=== PATIENT | female | born 1940 | race Caucasian/White ===

== ENCOUNTER → 2021-02-23 11:19 | Outpatient (CLI) | payer MEDICARE, SELFPAY ==
[2021-02-23 14:12] LABS: COVID19 -Nasal RAPID Negative (Negative)
== END ==
PROVIDERS: Visit Provider Student in an Organized Health Care Education/Training Program
DX: Z20.822 Contact with and (suspected) exposure to COVID-19 (principal); Z01.812 Encounter for preprocedural laboratory examination
CPT/HCPCS: 87635; C9803

== ENCOUNTER 2021-02-25 09:09 | Day surgery (SDC) | payer MEDICARE, SELFPAY ==
--- NOTE | 2021-02-24 19:01 | PM.PREOP ---
Pre-operative Note COVID-19 COVID-19 status: Negative Interval Note History & Physical reviewed/Exam performed by Physician: Yes Changes to H&P: No
--- NOTE | 2021-02-25 08:00 | P.OP_ITS ---
Operative Date/Time/Diagnoses Date of procedure: 02/25/21 Time of procedure: 10:45 Procedure & Clinicians Procedure: Preoperative diagnoses: 1. Complex right advanced cortical and nuclear sclerotic cataract with need for capsular dye to improve safety. 2. Astigmatism which is to be corrected with a toric intraocular lens implant. 3. Scoliosis 4. Previous breast cancer. 5. Hypertension with reduced medication due to side effects. Postoperative diagnoses: 1. Complex Cataract removal with phacoemulsification with toric posterior chamber intraocular lens implant placed. Capsular dye used. Procedure: Phacoemulsification with posterior chamber toric intraocular lens implant. Surgeon: Alla Hale MD Complications: None Specimen: None Implant: [id number]+19.5 [place] 180 Blood loss: None Anesthesia: Retrobulbar with monitored standby Description of procedure: Patient presents with a complaint of decreased vision due to cataract which is affecting activities of daily living especially for dry. The patient wants surgery to improve vision and astigmatism. She chooses a distance target. She understands the extra risk of surgery during the COVID-19 epidemic and wishes to proceed. She has been vaccinated. She has tested negative for active COVID 19 virus within 72 hours of the procedure. The patient was taken to the operating room and proparacaine drops placed. Indelible ink daily were placed at the 90 and 180 degree meridian. The patient was placed on the operating room table and given IV sedation. A retrobulbar block insert consisting of 6 cc of 2% xylocaine without epinephrine mixed half and half with 0.5% Marcaine with 1 cc of hyaluronidase added is placed between the medial and lateral 1/3 of the inferior orbital rim. The eye is manually massaged for 30 sec, prepped using Betadine solution, and draped in the usual sterile fashion. Temporal approach was made, a 1 mm side-port incision was made 90? from the proposed corneal wound. Phenylephrine 1.5% mixed with 1% xylocaine 0.2 cc was placed into the anterior chamber. Due to poor red reflex and cortical spokes through the central visual axis and air bubble was was placed followed by Visudyne capsular dye. The air was then irrigated out of the anterior chamber. Viscoat followed by Healon was then placed. A 2.6 mm clear incision with a 2.6 mm blade was placed at the 170 degree meridian. A 360 degree capsulorrhexis style capsulotomy was then performed with a [facility] by the capsular dye. Hydrodelineation and hydrodissection were performed. The phacoemulsification unit is introduced, and sculpting used to groove the central lens. It is then removed in chopping mode. Epi nucleus is removed with epinuclear mode and irrigation aspiration was used to remove the peripheral cortex. The posterior capsule is polished. The intraocular lens is selected, inspected, power confirmed, and placed in the posterior chamber at the desired meridian of 180?. The pupil was not constricted. The wound was stromally hydrated and tested for leaks, there was none and it was left sutureless. Vigamox 0.1 cc was placed into the anterior chamber. Kenalog 0.2 cc was placed in the superior subconjunctival space. A drop of antibiotic and was placed and the eye was patched and shielded. The patient was stable and returned to the recovery room in excellent condition. Her blood pressure was controlled during the surgery with hydralazine and she is adjusting her usual blood pressure medication postoperatively. She has been on reduced dose due to side effects of vertigo and memory fogginess. Dictated by: Alla Hale MD Copy to: [facility] Same procedure as scheduled: Yes
[2021-02-25] MEDS: PROPARACAINE 0.5% OPHTH SOL 2 DROPS EYE-OP (10:08)
[2021-02-25] MEDS: CATARACT EYE COMPOUND (10 DROPS/SYRINGE) 3 DROPS EYE-OP (10:09)
[2021-02-25 10:15] VITALS: BP 192/89; PULSE 70; RESP 12; TEMP 37.1; O2SAT 99; BMI 21.5
[2021-02-25 10:32] VITALS: BP 178/93; PULSE 66
--- NOTE | 2021-02-25 11:21 | SUR.OPER ---
Supine on eye stretcher, head on extension cradle secured with tape. Arms tucked at sides with blanket. Pillow under knees.
[2021-02-25] MEDS: BALANCED SALT IRRIG SOLN NO.2 500 ML, EPINEPHrine 1 MG IRR (11:22)
[2021-02-25] MEDS: LIDOCAINE 2% 4 ML, BUPIVACAINE 0.5% (PF) 4 ML, HYALURONIDASE 150 UNIT INJ (11:22)
[2021-02-25] MEDS: TRYPAN BLUE 0.5 ML SYRINGE INJ (11:22)
[2021-02-25] MEDS: TRIAMCINOLONE 50 MG/5 ML VIAL INJ (11:24)
[2021-02-25] MEDS: HYALURONATE SODIUM 10 MG/ML SYRINGE INJ (11:24)
[2021-02-25] MEDS: ERYTHROMYCIN OPHTH 1 GM OINT 1 APPLIC EYE-RIGHT (11:25)
[2021-02-25] MEDS: CHONDROIDTIN/SOD HYALURONATE 1.05 ML SYRINGE INTRAOCULA (11:25)
[2021-02-25] MEDS: MOXIFLOXACIN INJ 4 MG/0.8 ML VIAL 0.5 MG EYE-OP (11:25)
[2021-02-25] MEDS: PHENYLEPHRINE/LIDOCAINE VIAL (OR) 0.2 ML EYE-OP (11:26)
[2021-02-25 11:50] VITALS: BP 145/70; PULSE 85; RESP 16; TEMP 36.6; O2SAT 97
== END 2021-02-25 12:07 | disposition home or self-care (01) ==
LOC: OR 09:15
PROVIDERS: PCP Family Medicine; Referring Provider Ophthalmology; Visit Provider Ophthalmology
PROC: (CPT 66984; principal; 2021-02-25 10:45)
DX: H25.811 Combined forms of age-related cataract, right eye (principal); H52.201 Unspecified astigmatism, right eye; I10 Essential (primary) hypertension
CPT/HCPCS: 66984; J0171; J0360; J2704; J3301; J3470; V2787

== ENCOUNTER 2021-03-11 12:10 | Day surgery (SDC) | payer MEDICARE, SELFPAY ==
--- NOTE | 2021-03-10 17:57 | PM.PREOP ---
Pre-operative Note COVID-19 COVID-19 status: Negative Interval Note History & Physical reviewed/Exam performed by Physician: Yes Changes to H&P: No
--- NOTE | 2021-03-11 08:31 | P.OP_ITS ---
Operative Date/Time/Diagnoses Date of procedure: 03/11/21 Time of procedure: 13:15 Procedure & Clinicians Procedure: Preoperative diagnoses: 1. Left cortical and nuclear sclerotic cataract 2. Astigmatism which is to be corrected with a toric intraocular lens implant. 3. History of breast surgery. 4. History of poorly controlled hypertension with medicines being altered to improve control. 5. Pterygium Postoperative diagnoses: 1. Cataract removal with phacoemulsification with toric posterior chamber intraocular lens implant placed. Procedure: Phacoemulsification with posterior chamber toric intraocular lens implant. Surgeon: Alla Hale MD Complications: None Specimen: None Implant: [id number] [place] 180 Blood loss: None Anesthesia: Retrobulbar with monitored standby Description of procedure: Patient presents with a complaint of decreased vision due to cataract which is affecting activities of daily living distance and near. The patient wants surgery to improve vision and astigmatism. She states that she has had successful cataract surgery in her right eye 2 weeks ago and wants a similar target in this. She has tested COVID-19 negative within 72 hours prior to the procedure and wishes to proceed. She has been under medical care for her hypertension which is improving with new medication. The patient was taken to the operating room and proparacaine drops placed. Indelible ink daily were placed at the 90 and 180 degree meridian. The patient was placed on the operating room table and given IV sedation. A retrobulbar block insert consisting of 6 cc of 2% xylocaine without epinephrine mixed half and half with 0.5% Marcaine with 1 cc of hyaluronidase added is placed between the medial and lateral 1/3 of the inferior orbital rim. The eye is manually massaged for 30 sec, prepped using Betadine solution, and draped in the usual sterile fashion. Temporal approach was made, a 1 mm side-port incision was made 90? from the proposed corneal wound. Phenylephrine 1.5% mixed with 1% xylocaine 0.2 cc was placed into the anterior chamber. Viscoat followed by Josselyn was then placed. A 2.6 mm clear incision with a 2.6 mm blade was placed at the 170 degree meridian. A 360 degree capsulorrhexis style capsulotomy was then performed with a cystitome needle on a Healon. Hydrodelineation and hydrodissection were performed. The phacoemulsification unit is introduced, and sculpting used to groove the central lens. It is then removed in chopping mode. Epi nucleus is removed with epinuclear mode and irrigation aspiration was used to remove the peripheral cortex. The posterior capsule is polished. The intraocular lens is selected, inspected, power confirmed, and placed in the posterior chamber at the desired meridian of 180?. The pupil was not constricted. The wound was stromally hydrated and tested for leaks, there was none and it was left sutureless. Vigamox 0.1 cc was placed into the anterior chamber. Kenalog 0.2 cc was placed in the superior subconjunctival space. A drop of antibiotic and was placed and the eye was patched and shielded. The patient was stable and returned to the recovery room in excellent condition. Dictated by: Alla Hale MD Copy to: [facility] Same procedure as scheduled: Yes
[2021-03-11] MEDS: PROPARACAINE 0.5% OPHTH SOL 2 DROPS EYE-OP (12:30)
[2021-03-11 12:31] VITALS: BP 190/94; PULSE 76; RESP 12; TEMP 36.9; O2SAT 100; BMI 21.5
[2021-03-11] MEDS: CATARACT EYE COMPOUND (10 DROPS/SYRINGE) 3 DROPS EYE-OP (12:35)
[2021-03-11] MEDS: HYALURONATE SODIUM 10 MG/ML SYRINGE INJ (14:09)
[2021-03-11] MEDS: CHONDROIDTIN/SOD HYALURONATE 1.05 ML SYRINGE INTRAOCULA (14:09)
[2021-03-11] MEDS: MOXIFLOXACIN INJ 4 MG/0.8 ML VIAL 0.5 MG EYE-OP (14:09)
[2021-03-11] MEDS: TRIAMCINOLONE 50 MG/5 ML VIAL INJ (14:10)
[2021-03-11] MEDS: PHENYLEPHRINE/LIDOCAINE VIAL (OR) 0.2 ML EYE-OP (14:10)
[2021-03-11] MEDS: LIDOCAINE 2% 4 ML, BUPIVACAINE 0.5% (PF) 4 ML, HYALURONIDASE 150 UNIT INJ (14:11)
[2021-03-11] MEDS: BALANCED SALT IRRIG SOLN NO.2 500 ML, EPINEPHrine 1 MG IRR (14:11)
[2021-03-11] MEDS: ERYTHROMYCIN OPHTH 1 GM OINT 1 APPLIC EYE-LEFT (14:13)
[2021-03-11 14:33] VITALS: BP 174/83; PULSE 64; RESP 14; TEMP 36.7; O2SAT 100
== END 2021-03-11 14:40 | disposition home or self-care (01) ==
PROVIDERS: PCP Family Medicine; Referring Provider Ophthalmology; Visit Provider Ophthalmology
PROC: (CPT 66984; principal; 2021-03-11 13:15)
DX: H25.812 Combined forms of age-related cataract, left eye (principal); H52.202 Unspecified astigmatism, left eye; I10 Essential (primary) hypertension; H11.009 Unspecified pterygium of unspecified eye
CPT/HCPCS: 66984; J0171; J2704; J3010; J3301; J3470; V2787

== ENCOUNTER → 2022-03-22 14:39 | Outpatient (CLI) | payer MEDICARE, SELFPAY ==
--- NOTE | 2022-03-22 | DI.ECHO.S_ITS ---
[place]---------+ [facility] +---------+ : : [address] : : : : [id number] : : : : Phone: [phone]+ Echocardiogram Report + + :Name: FRANKLIN HURD Study Date: 03/22/2022 Height: 62 in : :[facility] ReadingLocation: Weight: 108 lb : : Gender: Female BSA: 1.5 m2 : :: 1940 Age: 81 yrs BP: 167/83 mmHg: :Reason For Study: CARDIAC MURMUR : :Ordering Physician: CHELSEA, : :REANNA Performed By: Lamar Mixon : :Referring: REANNA PEREZ : + + Interpretation Summary 1) Normal left ventricular thickness, size, wall motion, and systolic function (EF 60-65%). 2) Normal right ventricular size and function. 3) No significant valvular abnormalities. 4) No prior Echo available for comparison. Procedure: A two-dimensional transthoracic echocardiogram with color flow and Doppler was performed. The study quality was technically adequate. There is no prior echocardiogram noted for this patient. The patient was in sinus rhythm with heart rates between 65-75 bpm during the exam. Left Ventricle: The left ventricle is normal in size and wall thickness. The ejection fraction is estimated to be 60-65%. Left ventricular systolic function appears normal without focal wall motion abnormalities. Diastolic parameters suggest a relaxation abnormality of the left ventricle, consistent with probable normal filling pressures. Right Ventricle: The right ventricle is normal in size and function. Atria: The left atrial size is normal. Right atrial size is normal. There is no Doppler evidence for an interatrial shunt. Mitral Valve: The mitral valve is normal in structure and function. There is mild mitral annular calcification. There is mild mitral regurgitation. Aortic Valve: The aortic valve is trileaflet. The aortic valve opens well. There is no aortic valve stenosis. There is trace aortic regurgitation. Tricuspid Valve: The tricuspid valve is normal in structure and function. There is mild tricuspid regurgitation. The right ventricular systolic pressure is estimated to be at least 32 mmHg based on an estimated right atrial pressure of 3 mm Hg. Pulmonic Valve: The pulmonic valve is not well seen, but is grossly normal. There is trace pulmonic regurgitation. Great Vessels: The aortic root is normal size. The dimensions of the ascending aorta are normal. The IVC is of normal diameter and collapses greater than 50% with a sniff. This suggests a low right atrial pressure of 3 mm Hg. Pericardium/ Pleura There is no pericardial effusion. There is no pleural effusion. MMode/2D Measurements & Calculations LVIDd: 3.6 cm LVOT diam: 2.0 cm LVIDs: 2.3 cm Ao root diam: 2.8 cm FS: 34.3 % asc Aorta Diam: 2.8 cm IVSd: 0.78 cm Ao Arch Diam (Prox Trans): 2.6 cm LVPWd: 0.94 cm LV bhatt. diameter/BSA (cm/m^2): 2.4 LV sys. diameter/BSA (cm/m^2): 1.6 LA A2 area: 15.8 cm2 RA long axis: 4.7 cm LA A4 area: 16.8 cm2 RA area: 16.3 cm2 LA length (vol): 4.9 cm RA vol: 47.7 ml LA vol: 46.3 ml RA : 32.4 ml/m2 LA vol index: 31.5 ml/m2 IVC diam: 1.8 cm RVD1 (basal): 3.1 cm RVD2 (mid): 2.5 cm TAPSE: 2.5 cm Doppler Measurements & Calculations Ao V2 max: 155.4 cm/sec LVOT Max Dinesh: 149.5 cm/sec Ao V2 mean: 113.4 cm/sec LV V1 max P.9 mmHg Ao max P.7 mmHg LV V1 VTI: 31.0 cm Ao mean P.6 mmHg JAROD(I,D): 2.9 cm2 Ao V2 VTI: 31.9 cm JAROD(V,D): 2.9 cm2 sev ratio: 0.97 JAROD indexed to BSA (cm^2/m^2): 2.0 MV E max dinesh: 91.5 cm/sec TR max dinesh: 270.9 cm/sec MV A max dinesh: 81.2 cm/sec TR max P.3 mmHg MV E/A: 1.1 PA V2 max: 93.8 cm/sec Med Peak E' Dinesh: 10.3 cm/sec PA V2 mean: 70.4 cm/sec E/E' med: 8.9 PA mean P.1 mmHg Lat Peak E' Dinesh: 11.0 cm/sec PA pr(Accel): 32.8 mmHg E/E' lat: 8.3 E/e' average: 8.6 MV dec time: 0.23 sec MVA(VTI): 3.1 cm2 MV V2 mean: 63.1 cm/sec SV(LVOT): 93.7 ml MV mean P.9 mmHg MV V2 VTI: 30.5 cm Reading Physician:04:23 PM
== END ==
PROVIDERS: PCP Family Medicine; Referring Provider Internal Medicine Cardiovascular Disease; Visit Provider Internal Medicine Cardiovascular Disease
DX: R01.1 Cardiac murmur, unspecified (principal); I08.1 Rheumatic disorders of both mitral and tricuspid valves
CPT/HCPCS: 93306

== ENCOUNTER 2023-10-01 20:07 | Emergency (ER) | payer MEDICARE, SELFPAY ==
[2023-10-01 20:14] VITALS: BP 168/75; PULSE 93; RESP 16; TEMP 37.3; O2SAT 98; BMI 20.7
--- NOTE | 2023-10-01 20:19 | DI.RAD.S_ITS ---
PROCEDURE: XR SHOULDER LT MIN 2V INDICATIONS: fall/pain TECHNIQUE: 3 views of the shoulder were acquired. COMPARISON: None. FINDINGS: Bones: Acute slightly comminuted fracture involving surgical neck of left proximal humerus is seen with superior and medial displacement of proximal humeral shaft in relation to humeral head. No suspicious bony lesions. Visualized ribs appear intact. Soft tissues: No suspicious soft tissue calcifications. IMPRESSION: Acute slightly comminuted and displaced fracture through left proximal humeral shaft/surgical neck as above. Dictated by: Dagoberto Flores M.D. on 10/01/2023 at 20:50 Approved by: Dagoberto Flores M.D. on 10/01/2023 at 20:52
--- NOTE | 2023-10-01 21:09 | PC.NURSE ---
pt ambulatory to recliner in hallway in nad with ice pack in place to R shoulder. nad noted.
--- NOTE | 2023-10-01 21:54 | ED.UPPEXIN ---
HPI - Extremity Injury (Upper) General Chief Complaint: Extremity Injury, Upper Stated Complaint: Left shoulder injury Time Seen by Provider: 10/01/23 20:26 Source: patient Mode of arrival: Ambulatory History of Present Illness HPI narrative: 82-year-old female who presents with left shoulder pain and swelling after reportedly ?pivoting while walking and fell onto her left upper extremity. Pain is described as a dull, throbbing ache that is worse with range of motion and palpation. Patient reports in a usual state of health prior to incident. No other complaints injuries associated symptoms noted. Patient arrives via private vehicle. Patient is awake, alert in no apparent distress and maintaining her own airway. Related Data Home Medications Medication Instructions Recorded Confirmed cholecalciferol (vitamin D3) 50 2,000 iu PO QDAY ##0 08/11/11 03/11/21 mcg (2,000 unit) capsule (Vitamin D3) [ROBOSE] 1 cap PO QDAY ##0 05/20/17 03/11/21 lysine 500 mg tablet 500 mg PO QDAY ##0 05/20/17 03/11/21 magnesium 200 mg tablet 200 mg PO QDAY ##0 05/20/17 03/11/21 multivitamin (Multiple Vitamins 1 tab PO QDAY ##0 05/20/17 03/11/21 tablet) vitamin B complex (B 1 tab PO QDAY ##0 05/20/17 03/11/21 Complex-Vitamin B12 tablet) losartan 25 mg tablet 25 mg PO DAILY 03/11/21 03/11/21 Previous Rx's Medication Instructions Recorded levothyroxine 75 mcg tablet 0.075 mg PO QAM #90 tabs 12/23/16 (Synthroid) oxycodone-acetaminophen 5 mg-325 1 tab PO Q4-6H PRN pain #20 tabs 10/01/23 mg tablet (Percocet) Allergies Allergy/AdvReac Type Severity Reaction Status Date / Time Sulfa (Sulfonamide Allergy Mild Verified 03/11/21 12:26 Antibiotics) OCEAN SPRAY Allergy Mild RUNNY Uncoded 03/11/21 12:26 NOSE, WATERY EYES Review of Systems Review of Systems Narrative: See HPI for pertinent positives, otherwise review of systems negative Patient History Surgical History Status post tubal ligation Status post dilation and curettage Family History Father Prostate cancer Hypertension Grandmother Heart disease Hypertension Mother Hypertension Stroke Social History household members: spouse Smoking Status: Never smoker alcohol intake: current Smoking Status: Never smoker alcohol intake frequency: 0-2 drinks per day Substance Use Type: does not use Exam Narrative Exam Narrative: General:? Awake, alert, lying comfortably in bed during both exam and interview and in no apparent distress HEENT:? Normocephalic, atraumatic, pupils equal and reactive to light, neck is supple, normal range of motion Chest:? Normal to inspection, no crepitus, no tenderness Cardiovascular:? 2+ radial bilaterally, regular rhythm/rate. Pulmonary:? Regular respirations, no respiratory distress, lungs clear to auscultation bilateral Abdomen:? Soft, nontender, nondistended, no guarding or rebound tenderness, no hernia Back: ?No midline spinal tenderness, normal range of motion, no step-off deformities :? Exam deferred Skin:? Warm, dry, intact, no rashes Extremities:? Left proximal upper extremity swelling and pain with range of motion limited due to pain. Neuro:? No focal neurological deficits, , normal gait, normal speech Psych:? Normal mood, normal affect normal attention Initial Vital Signs Initial Vital Signs: Vital Signs Temperature 99.2 F 10/01/23 20:14 Pulse Rate 93 H 10/01/23 20:14 Respiratory Rate 16 10/01/23 20:14 Blood Pressure 168/75 H 10/01/23 20:14 Pulse Oximetry 98 10/01/23 20:14 Oxygen Delivery Method Room Air 10/01/23 20:14 Course Orders Ordered: Discontinued Medications Oxycodone/Acetaminophen (Oxycodone/Acetaminophen 5/325 Tablet) 1 tab PO NOW ONE Stop: 10/01/23 21:54 Last Admin: 10/01/23 21:59 Dose: Not Given Documented By: TARIK Oxycodone/Acetaminophen (Oxycodone/Apap 5/325 Prepack) 1 bottle MISC DIRECTED ONE Stop: 10/01/23 21:54 Last Admin: 10/01/23 22:12 Dose: 1 bottle Documented By: KF Vital Signs Vital signs: Vital Signs - 8 hr 10/01/23 20:14 Temperature 99.2 F Pulse Rate 93 H Respiratory Rate 16 Blood Pressure 168/75 H Pulse Oximetry 98 Oxygen Delivery Method Room Air MDM - Extremity Injury (Upper) MDM Narrative Medical decision making narrative: Patient presents with left shoulder pain and imaging suggestive proximal humeral fracture. Pain control given along with arm sling. Discussed case with orthopedics patient scheduled to have surgery. Discharge Plan Departure Patient Disposition: Home Clinical Impression: Fracture, humerus closed Instructions: Humeral Shaft Fracture Prescriptions: New oxycodone-acetaminophen [Percocet] 5-325 mg tablet 1 tab PO Q4-6H PRN (Reason: pain) Qty: 20 0RF Continued cholecalciferol (vitamin D3) [Vitamin D3] 2,000 UNIT capsule 2,000 iu PO QDAY Qty: 0 levothyroxine [Synthroid] 75 MCG tablet 0.075 mg PO QAM Qty: 90 1RF magnesium 200 MG tablet 200 mg PO QDAY Qty: 0 multivitamin [Multiple Vitamins] 1 EACH tablet 1 tab PO QDAY Qty: 0 vitamin B complex [B Complex-Vitamin B12] 1 EACH tablet 1 tab PO QDAY Qty: 0 lysine 500 MG tablet 500 mg PO QDAY Qty: 0 [ROBOSE] 1 cap PO QDAY Qty: 0 losartan 25 mg tablet 25 mg PO DAILY Referrals: Cesar Stockton MD [Physician] - As soon as possible Markie Leblanc MD [Primary Care Provider] - As soon as possible Stand Alone Forms: Patient Portal/API
[2023-10-01] MEDS: OXYCODONE/APAP 5/325 PREPACK 1 BOTTLE MISC (22:12)
== END 2023-10-01 22:22 | disposition home or self-care (01) ==
PROVIDERS: Emergency Provider Emergency Medicine; PCP Family Medicine
DX: S42.302A Unspecified fracture of shaft of humerus, left arm, initial encounter for closed fracture (principal); W18.30XA Fall on same level, unspecified, initial encounter
CPT/HCPCS: 73030; 99281; 99283

== ENCOUNTER → 2023-10-31 12:04 | Outpatient (CLI) | payer MEDICARE, SELFPAY ==
--- NOTE | 2023-10-31 | DI.RAD.S_ITS ---
PROCEDURE: XR LUMBAR SPINE 2-3V INDICATIONS: Other displaced fracture of upper end of left humerus TECHNIQUE: 3 views of the lumbar spine were acquired. COMPARISON: None. FINDINGS: Bones: 5 non rib-bearing lumbar vertebral bodies. Extensive degenerative change. Scoliotic curvature. Question mild chronic compressions of the left side of L1 and L2. Diffuse osteopenia. Soft tissues: Overlying bowel gas pattern is normal. No suspicious soft tissue calcifications. IMPRESSION: Extensive degenerative change, scoliotic curvature, severe osteopenia, presumed chronic compressions. Comment: If suspect pain from an acute compression fracture, consider lumbar spine MRI. Dictated by: Hola Cline M.D. on 10/31/2023 at 17:55 Approved by: Hola Cline M.D. on 10/31/2023 at 17:57
--- NOTE | 2023-10-31 | DI.CT.S_ITS ---
PROCEDURE: CT UE LT WO CON INDICATIONS: Other displaced fracture of upper end of left taryn TECHNIQUE: Noncontrast 1-1.5 mm thick sections acquired from the acromioclavicular joint to the inferior scapula, with coronal and sagittal reformatting. COMPARISON: None. FINDINGS: Image quality: Excellent. Bones: Comminuted fracture involving surgical neck/proximal humeral shaft is seen with superior and anterior migration of humeral shaft in relation to humeral head. Fracture lines are seen extending to greater and lesser tuberosities with anterior, lateral and posterior medial displacement of fractured fragments. No dislocation. Moderate acromioclavicular joint and glenohumeral joint osteoarthritic changes are seen. No suspicious bony lesions. The visualized left upper to mid ribs are intact. Soft tissues: There is significant soft tissue swelling and edema surrounding proximal humeral shaft fracture site. Moderate joint effusion and subacromial subdeltoid bursal fluid is seen, no gross intra-articular loose bodies. No gross full-thickness rotator cuff tendon rupture. Mild supraspinatus muscle atrophy is seen on sagittal images. No axillary lymphadenopathy is seen. The visualized left upper to mid lung field is clear. IMPRESSION: 1. Acute comminuted and displaced left proximal humeral fracture as described above consistent with NEER classification 4 part fracture. 2. [id number] acromioclavicular joint and glenohumeral joint osteoarthritis. Moderate joint effusion which may represent hemarthrosis. No calcified intra-articular loose bodies. 3. No gross full-thickness rotator cuff tendon rupture. Mild supraspinatus muscle atrophy. No abnormal soft tissue calcifications. Dictated by: Dagoberto Flores M.D. on 10/31/2023 at 16:10 Approved by: Dagoberto Flores M.D. on 10/31/2023 at 16:13
[2023-10-31 12:52] LABS: Add Manual Diff / Slide Review NO; Basophils Absolute Auto 0 /uL (0-100); Basophils Percent Auto 0.7 % (0-2); Eosinophils Absolute Auto 0 /uL (0-450); Eosinophils Percent Auto 0.6 % (2-4); Hemoglobin 12.9 g/dL (12.0-16.0); Lymphocytes Absolute Auto 800 /uL (1100-4500); Lymphocytes Percent Auto 11.1 % (25-40); Mean Corpuscular Hemoglobin 32.2 PG (26-34); Mean Corpuscular Volume 91.9 fL (80-100); Monocytes Absolute Auto 500 /uL (0-900); Monocytes Percent Auto 7.8 % (3-14); Neutrophils Absolute Auto 5600 /uL (1500-7000); Neutrophils Percent Auto 79.8 % (50-75); Platelet Count 370 X10^3/uL (150-400); Red Blood Cell Count 4.02 X10^6/uL (4.0-5.2); Red Cell Distribution Width 13.2 % (11.6-14.8)
[2023-10-31 13:23] LABS: BUN Creatinine Ratio 23.1 (6-22); Blood Urea Nitrogen 12 mg/dL (7-17); Calcium 9.5 mg/dL (8.4-10.2); Carbon Dioxide 27 mmol/L (22-32); Chloride 88 mmol/L (98-107); Estimated Glomerular Filt Rate > 60 mL/min (>60); Glucose 114 mg/dL (80-110); HEMOLYSIS < 15 (0-50); Potassium 4.3 mmol/L (3.4-5.1); Sodium 124 mmol/L (137-145)
[2023-10-31 13:47] LABS: Appearance Urine UA CLEAR; Bilirubin Urine UA NEGATIVE (NEGATIVE); Color Urine UA YELLOW; Glucose Urine UA NEGATIVE (Negative); Ketones Urine UA TRACE (NEGATIVE); Leukocyte Esterase Urine UA NEGATIVE (NEGATIVE); Nitrite Urine UA NEGATIVE (Negative); Occult Blood Urine UA NEGATIVE (Negative); Protein Urine UA TRACE (Negative); Specific Gravity Urine UA 1.015 (1.000-1.035); Urobilinogen Urine UA 0.2 E.U./dL (0.2)
[2023-10-31 13:52] LABS: Urine Volume 10mL (spun); pH Urine UA 5.5 (4.5-8.0)
[2023-10-31 13:53] LABS: Bacteria Urine None Seen; Culture Indicated Urine Cult Not Indicated; RBC Urine None Seen (0-5/HPF); Squamous Epithelial Cell Urine None Seen (0-5/HPF); WBC Urine None Seen (0-5/HPF)
== END ==
PROVIDERS: Orthopaedic Surgery; PCP Family Medicine; Referring Provider Physician Assistant; Visit Provider Physician Assistant
DX: Z01.818 Encounter for other preprocedural examination (principal); Z01.812 Encounter for preprocedural laboratory examination; S42.292A Other displaced fracture of upper end of left humerus, initial encounter for closed fracture; N39.0 Urinary tract infection, site not specified; M43.16 Spondylolisthesis, lumbar region; M19.012 Primary osteoarthritis, left shoulder
CPT/HCPCS: 36415; 72114; 73200; 80048; 81001; 85025; 93005; 93010

== ENCOUNTER 2023-12-08 12:02 | Day surgery (SDC) | payer MEDICARE, SELFPAY ==
[2023-12-01 12:46] VITALS: BMI 20.4
[2023-12-08] VITALS (8 sets, daily range): BP systolic 105–160; BP diastolic 50–80; PULSE 61–93; RESP 15–19; TEMP 36.2–36.6; O2SAT 92–100; BMI 20.4
--- NOTE | 2023-12-08 | DI.RAD.S_ITS ---
PROCEDURE: XR SHOULDER LT 1V INDICATIONS: total left shoulder TECHNIQUE: 1 views of the shoulder were acquired. COMPARISON: [facility], , XR SHOULDER LT MIN 2V, 10/01/2023, 20:31. FINDINGS: Bones: Well-aligned, intact left shoulder arthroplasty without hardware complication. Soft tissues: Subcutaneous edema and gas, as expected. IMPRESSION: Well-aligned, intact left shoulder arthroplasty without hardware complication. Dictated by: Wolf Nash M.D. on 12/08/2023 at 18:27 Approved by: Wolf Nash M.D. on 12/08/2023 at 18:28
[2023-12-08] MEDS: LACTATED RINGERS 1,000 ML 42 ML IV ×3 (13:37→16:33)
[2023-12-08] MEDS: ACETAMINOPHEN 325 MG TABLET 975 MG PO ×2 (13:37→13:50)
[2023-12-08 14:02] LABS: Blood Urea Nitrogen 11 mg/dL (7-17); Calcium 9.9 mg/dL (8.4-10.2); Carbon Dioxide 28 mmol/L (22-32); Chloride 96 mmol/L (98-107); Estimated Glomerular Filt Rate > 60 mL/min (>60); Glucose 101 mg/dL (80-110); HEMOLYSIS < 15 (0-50); Potassium 4.1 mmol/L (3.4-5.1); Sodium 129 mmol/L (137-145)
--- NOTE | 2023-12-08 14:34 | P.HP_ITS ---
History of Present Illness History of Present Illness Date Patient Seen: 12/08/23 Time Patient Seen: 14:35 Chief complaint: Left Total Shoulder Arthroplasty - Reverse Narrative: Patient is here today in preoperative holding area for a left reverse total shoulder arthroplasty for a complex proximal humerus fracture. Here with her daughter today. Denies any recent nausea, vomiting, diarrhea, fevers, chills or any other constitutional symptoms. No other complaints at time. [facility] Medical History (Updated 12/01/23 @ 13:39 by Harriet Stewart RN) Cardiac murmur Sinus drainage Pneumonia (~2018) Anxiety and depression Arthritis Fracture of neck of left humerus Scoliosis Hypothyroidism History of chest pain (~2020) HLD (hyperlipidemia) HTN (hypertension) Surgical History (Updated 12/01/23 @ 13:17 by Harriet Stewart RN) History of orthopedic surgery Hx of bilateral cataract extraction Status post tubal ligation Status post dilation and curettage Family History Father Prostate cancer Hypertension Grandmother Heart disease Hypertension Mother Hypertension Stroke Social History household members: spouse Smoking Status: Never smoker alcohol intake: current Meds Home Medications and Allergies Home Medications Medication Instructions Recorded Confirmed Type cholecalciferol (vitamin D3) 50 5,000 iu PO QDAY ##0 08/11/11 12/08/23 History mcg (2,000 unit) capsule (Vitamin D3) levothyroxine 75 mcg tablet 0.075 mg PO QAM #90 tabs 12/23/16 12/08/23 Rx (Synthroid) multivitamin (Multiple Vitamins 1 tab PO QDAY ##0 05/20/17 12/08/23 History tablet) vitamin B complex (B 1 tab PO QDAY ##0 05/20/17 12/08/23 History Complex-Vitamin B12 tablet) amlodipine 10 mg tablet 10 mg PO BEDTIME 12/01/23 12/08/23 History losartan 100 mg tablet 100 mg PO BEDTIME 12/01/23 12/08/23 History rosuvastatin 5 mg tablet 5 mg PO BEDTIME 12/01/23 12/08/23 History Allergies Allergy/AdvReac Type Severity Reaction Status Date / Time Sulfa (Sulfonamide Allergy Mild Unkown - Verified 12/08/23 13:21 Antibiotics) childhood OCEAN SPRAY Allergy Mild RUNNY Uncoded 03/11/21 12:26 NOSE, WATERY EYES Review of Systems Review of Systems ROS: Yes All systems reviewed with the patient and are negative except as otherwise documented Exam Vital Signs (past 8 hours): - 12/08/23 13:42 Temperature 97.8 F Pulse Rate 76 Respiratory Rate 16 Blood Pressure 160/80 H Pulse Oximetry 100 Oxygen Delivery Method Room Air Oxygen Delivery Method Room Air Narrative Exam Narrative: HEENT: Head atraumatic eyes anicteric moist mucous membranes Cardiovascular: Palpable peripheral pulses extremities are warm and well perfused Respiratory: Breathing comfortably on room air Psychiatric: Appropriate mood and affect Neuro: No acute deficits Musculoskeletal: Did not range left upper extremity due to known injury. Able to make thumbs up, cross fingers, make A-OK sign. Sensation intact to light touch median, radial, ulnar, axillary nerve distributions. Objective Labs 12/08/23 Unknown Labs: Laboratory Results - last 24 hr 12/08/23 Unknown Sodium 129 L Potassium 4.1 Chloride 96 L Carbon Dioxide 28 BUN 11 Creatinine 0.44 L Estimated GFR > 60 BUN/Creatinine Ratio 25.0 H Glucose 101 Calcium 9.9 Assessment & Plan Assessment & Plan narrative: Assessment: 83-year-old female with left proximal humerus fracture Plan: We had previously discussed indications for treating proximal humerus fracture with nonoperative versus ORIF versus shoulder replacement. Given the poor bone quality, fracture morphology and significant displacement, I believe that the most appropriate solution for her is a reverse total shoulder arthroplasty. Risks and benefits of surgery were discussed again including the risk of infection, damage to internal structures, bleeding, nerve injury, instability, need for revision surgery, blood clots, anesthesia and . No guarantees were made regarding outcomes. Patient expressed understanding and accepted these risks and wished to go forward with surgery and consent was signed.
[2023-12-08] MEDS: CEFAZOLIN 2 GM/100 ML PREMIX 100 ML IV (14:53)
[2023-12-08] MEDS: TRANEXAMIC ACID 1,000 MG in SODIUM CHLORIDE 0.9% 100 ML 200 MG IV (14:53)
[2023-12-08] MEDS: EPINEPHRINE 0.15 MG INJ (15:42)
[2023-12-08] MEDS: BUPIVACAINE 0.25% INJ (15:42)
[2023-12-08] MEDS: BUPIVACAINE LIPOSOME 266 MG/20 ML VIAL INJ (15:43)
--- NOTE | 2023-12-08 15:45 | SUR.OPER ---
Beach chair with PALOMA shoulder positioner. Lower body on padded OR bed. Head in foam padded head cradle, secured with straps. Non-operative arm secured <90 degrees abduction. Pillow under knees. Safety belt at thigh. Cloth tape over blanket over lower legs.
[2023-12-08] MEDS: OXYCODONE IR 5 MG TABLET PO (18:07)
--- NOTE | 2023-12-08 18:19 | P.OP_ITS ---
Operative Date/Time/Diagnoses Date of procedure: 12/08/23 Time of procedure: 18:19 Pre-op diagnosis: Left proximal humerus fracture Post-op diagnosis: same Procedure & Clinicians Procedure: Left shoulder reverse for fracture Same procedure as scheduled: Yes Indications: Indications: This is a 83-year-old female who has left proximal humerus fracture. After extensive discussion in clinic, they wished to go forward with surgery. Risks and benefits were described including the risk of infection, bleeding, damage to internal structures including nerves as well as instability. We also discussed the risk of failure of surgery and the need for revision surgery as well as the risk of anesthesia. The patient expressed understanding with these risks and wished to go forward with surgery. Surgeon: Harlan Mcknight Conservation Agent: Lena Sethi Anesthesia Type: General Operative Notes Findings: Findings: Comminuted fracture of the proximal humerus including the humeral head Closure Type: primary Specimen(s): none sent Prosthetic devices, grafts, tissues, transplants, or devices: Tornier implants Base plate: standard 25 mm Glenosphere: 33 Stem: Fracture stem size 8 S Poly: +6 concentric Estimated Blood Loss (mL): 50 Procedure in detail: Patient was seen in the preoperative holding unit. The correct left shoulder was identified and marked with my initials. Again we discussed the risks and benefits of surgery and they wished to go forward with surgery. The patient was brought back to the operating room and placed supine on the operating table. Smooth endotracheal intubation was performed by anesthesia. All prominences were padded and they were placed into the beach chair position. Intravenous antibiotics were given. The left shoulder was then prepped with the standard sterile preparation and draping. A time-out was then performed in my initials were again identified on the correct shoulder. 1 g of IV tranexamic acid was given. A standard deltopectoral incision was made. Skin flaps were made. The cephalic vein was identified and retracted laterally. This was protected throughout the remainder of the case. Sharp dissection was made along the deltoid, subacromial and subcoracoid space to release adhesions. The conjoined tendon was identified and the axillary nerve was palpated and continuous using the tug test. It was protected throughout the remainder of the case. A brown retractor was placed underneath the deltoid muscle and a darach retractor underneath the conjoint tendon. The anterior circumflex artery and associated veins on the lower border of the subscapularis were identified and tied off using 0-Vicryl. The biceps tendon was identified in the bicipital groove. This was released from its sheath, and taken from its origin on the glenoid and tied into the pectoralis tendon for a solid tenodesis. We then began a subscapularis peel. The subscapularis was tagged with an Ethibond suture. A 360 degree circumferential release of the subscapularis was performed with protection of the axillary nerve. The coracohumeral ligament was released at the base of the coracoid. The coracoacromial ligament was left intact. The shoulder was then dislocated. Humeral head was removed and Osteophytes were removed using combination of rongeur and osteotome. The rotator cuff was noted to be intact. Impaction reamers were reamed up to a size 8 S stem. A neck protector was placed. Attention was then turned to the glenoid. After retracting the humeral head posteriorly a circumferential release was performed of the capsule with protection of the axillary nerve. The labrum was then released starting at the biceps anchor and going around the rim a small amount of triceps was released from the inferior glenoid. A center guide pin was then placed using the guide, followed by Reamer. After adequate cartilage was removed the center drill hole was drilled and measured. The base plate was then implanted and screwed into place. The superior drill and inferior hole was drilled and filled in a nonlocking fashion with good compression. A 33 glenosphere was then selected and screwed into place onto the base plate. Turning back to the humerus, the humeral head was delivered and trialed with a +6 concentric. The arm was taken through range of motion and this was felt to be stable. The trial was then removed and a dilute Betadine wash was then performed with 1 L of sterile saline. Before placing the final implant, drill holes were made in the bicipital groove for the subscapularis repair, and sutures were passed through the drill holes. Medium viscosity cement was placed on the smooth part of the stem. The final stem was then impacted into the humerus. The shoulder was then reduced and again brought through range of motion and was felt to be stable. The interval was then closed using #2 Ethibond. The subscapularis was then repaired using a modified racking hitch with nice loupes. The deltopectoral interval was then closed with #2 Ethibond. The skin was closed with 2-0 Vicryl and monae followed by Aquacel dressing. Patient was awoken from anesthesia and brought back to the postoperative recovery unit without issue. They were placed into a sling. Assisting participation: This operation could not have been safely performed (without compromising the technical results or length of the procedure) without the assistance of a skilled salesperson surgical appliances. The salesperson surgical appliances was medically necessary for proper positioning, retraction and manipulation of instruments, proper exposure, graft prep, and manipulation of tissue. Complications: none Post-operative Condition: stable Disposition: PACU Plan for aftercare: Postoperative instructions: Sling to remain on for 6 weeks. No external rotation past neutral for 6 weeks. Okay for the sling to come off for shower. Okay to shower over the Aquacel dressing. If any water gets underneath the dressing, remove the dressing. First postoperative visit in 2 weeks.
--- NOTE | 2023-12-08 18:31 | PC.NURSE ---
Patient arrived to room 220 this evening at 1830. She is A&OX4, slightly groggy and drowsy. She has LUE in shoulder sling, reports numbness Tingling and weakness to left hand and fingers.
[2023-12-08] MEDS: HYDROMORPHONE 0.5 MG INJ IV (18:58)
[2023-12-08] MEDS: ONDANSETRON 4 MG/2 ML INJ IV (19:34)
[2023-12-08] MEDS: SENNOSIDES 8.6 MG TABLET 17.2 MG PO (21:24)
[2023-12-08] MEDS: ASPIRIN EC 81 MG TABLET PO (21:24)
[2023-12-08] MEDS: DOCUSATE 100 MG CAPSULE PO (21:24)
--- NOTE | 2023-12-08 22:10 | PC.NURSE ---
Patient took home medications while family present. Medications are Losartan, Rosuvastin, and amlodipine. Notified on-call, Dr. Hu, also asked for order for Levothyroxine 75mcg. Patient education given on home medications per protocol, medications sent to pharmacy.
[2023-12-08] MEDS: CEFAZOLIN VIAL 1 GM in SODIUM CHLORIDE 0.9% 100 ML IV (22:57)
[2023-12-09] VITALS: BP 122/67; PULSE 72; RESP 18; TEMP 36.2; O2SAT 96
[2023-12-09] MEDS: ONDANSETRON 4 MG ODT PO ×2 (00:30→06:23)
[2023-12-09] MEDS: IBUPROFEN 600 MG TABLET PO ×2 (00:43→06:10)
[2023-12-09] MEDS: ACETAMINOPHEN 325 MG TABLET 650 MG PO ×3 (00:43→14:48)
[2023-12-09 06:00] VITALS: BP 119/63; PULSE 69; RESP 16; TEMP 36.8; O2SAT 96
[2023-12-09] MEDS: CEFAZOLIN VIAL 1 GM in SODIUM CHLORIDE 0.9% 100 ML IV (06:10)
[2023-12-09] MEDS: LEVOTHYROXINE 75 MCG TABLET PO (06:10)
[2023-12-09 06:50] LABS: Hematocrit 31.3 % (36-46); Mean Corpuscular Hemoglobin 32.1 PG (26-34); Mean Corpuscular Volume 91.5 fL (80-100); Platelet Count 201 X10^3/uL (150-400); Red Blood Cell Count 3.43 X10^6/uL (4.0-5.2); Red Cell Distribution Width 12.4 % (11.6-14.8); White Blood Cell Count 6.8 X10^3/uL (4.5-11.0)
[2023-12-09 08:19] VITALS: BP 121/58; PULSE 73
[2023-12-09] MEDS: ASPIRIN EC 81 MG TABLET PO (08:55)
[2023-12-09] MEDS: DOCUSATE 100 MG CAPSULE PO (08:55)
--- NOTE | 2023-12-09 09:37 | PT.IIE ---
Current Diagnoses Unspecified displaced fracture of surgical neck of left humerus, initial encounter for closed fracture (12/08/23) Surgery Performed Operation Date: 12/08/23 13:45 Actual Procedures p Total Shoulder Arthroplasty - Reverse with biceps tenodesis(Left) - Harlan Mcknight MD Surgical History (Last Updated 12/01/23 @ 13:17 by Harriet Stewart, RN) History of orthopedic surgery Hx of bilateral cataract extraction Status post dilation and curettage Status post tubal ligation Medical History (Last Updated 12/01/23 @ 13:39 by Harriet Stewart RN) Anxiety and depression Arthritis Cardiac murmur Fracture of neck of left humerus History of chest pain (~2020) HLD (hyperlipidemia) HTN (hypertension) Hypothyroidism Pneumonia (~2018) Scoliosis Sinus drainage Physical Therapy Inpatient Evaluation/Re-Eval M1 PT/OT-IP Prior Functional Status Start: 12/09/23 08:06 Freq: NEEDED Status: Active Protocol: Document 12/09/23 09:37 DLM (Rec: 12/09/23 11:53 DL [id number]) Medical Review Prior Functional Status Medical History Reviewed Yes Diet/Fluid Consistency Regular Communication WNL Mobility and Gait Independent without device, uses walking stick/sticks when taking walks on uneven surfaces Activities of Daily Living and IADL's Independent before humeral fx in Sep. Her and Daughter have been helping her since her injury. Prior Functional Level (Other details) She has an outhouse at home so using Commode instead since injury in September Social History Household Members spouse Living Arrangements House Number of Floors (Floors) Two Floors Number of Stairs To Enter/Railing? one step, her studio and clothing are on upper level otherwise she can stay first floor Home Environment Standard Height Toilet,Tub/ Shower Home Equipment Bedside Commode,Tub Transfer Bench Additional Social History Comment She makes things in her studio , sewing, crafts, art M2 PT-IP Current Condition Start: 12/09/23 08:06 Freq: NEEDED Status: Active Protocol: Document 12/09/23 09:37 DLM (Rec: 12/09/23 11:53 DLM [id number]) Physical Therapy Current Condition Current Condition Evaluation Date 12/09/23 Treatment Diagnosis left total shoulder Onset Date 12/08/23 M3 PT-IP Subjective Start: 12/09/23 08:06 Freq: NEEDED Status: Active Protocol: Document 12/09/23 09:37 DLM (Rec: 12/09/23 11:53 DL [id number]) Subjective Physical Therapy Visit Type Type Initial Evaluation Visit Start Time 08:50 Visit Stop Time 09:37 Number of ELECTRIC RELAY TESTER Visits 0 Physical Therapy Visit Comments Patient Comments She is having difficulty with nausea and gagging after taking medications. She has not been able to eat much. Patient Goals Discharge home Therapy Pain Assessment Pain When Pain Assessed At Rest Pain Present Pain Present Pain Reported Location Left Shoulder Intensity 4 Scale Used Numeric (0 - 10) Description Aching,Tender Pain Behaviors Guarding Pain Management Techniques Apply Cold,Re-positioning M4 PT-IP Mobility and Gait Start: 12/09/23 08:06 Freq: NEEDED Status: Active Protocol: Document 12/09/23 09:37 DLM (Rec: 12/09/23 11:53 [facility] [id number]) PT-Bed Mobility Assessment Supine to Sit Supine to Sit Independent Sit to Supine Sit to Supine Independent Scooting Scooting to Edge of Bed Independent PT-Transfer Assessment Sit to and From Stand Sit to and from Stand Independent Equipment Transfer Assistive Device None Transfers Transfer Destination Chair Transfer Technique Stand Step Pivot Transfer Ability Level of Assist Contact Guard Assistance, Minimal Assistance Comments Mobility Comments Pt requesting hand held assist due to her head feeling funny . Pt up to recliner this visit and left up with call light close. She had intermittent severe bouts of nausea during this visit but no vomiting. Her nurse is aware. Gait Assessment Gait Gait Assistance Required: Contact Guard Assist,Minimum Assistance Distance (Feet) 30 Assistive Devices Assistive Device None Gait Deviations General Gait Pattern Within Normal Limits Factors Limiting Gait Function Factors Limiting Gait Function Decreased Activity Tolerance Comments Gait Comments she demonstrates functional LE strength for safe gait, distances limited by nausea this visit PT-Balance Assessment Sitting Balance and Reactions Static Sitting Balance Ability Normal Dynamic Sitting Balance Ability Normal Standing Balance and Reactions Static Standing Balance Ability Good Dynamic Standing Balance Ability Fair Comments Other Balance Tests/Deviations/Treatment pt reports her head feels : foggy this morning which she believes is related to medications M5 PT-IP Objective Assessments Start: 12/09/23 08:06 Freq: NEEDED Status: Active Protocol: Document 12/09/23 09:37 DLM (Rec: 12/09/23 11:53 DL [id number]) Orientation Orientation/Cognition Level of Alertness Alert Orientation Name,Age,Birthday,Month,Date, Year,Day of Week,Place, Situation Language Function Ability No Deficits Noted Safety Awareness Understands Safety Issues Memory Description No Deficits Noted Gross Range of Motion Upper Extremity ROM Assessment Left Impaired Impairments post-op shoulder restrictions, no use left shoulder, elbow can extend with mild pain, moving wrist and hand actively Strength Upper Extremity Strength Assessment Left Impaired Shoulder no use Hand moving actively Lower Extremity Strength Assessment Within Functional Limits Coordination Assessment Gross Coordination Gross Coordination WNL Sensation Assessment Sensation Gross Sensation Left UE Impaired Comments Sensation Comments tingling in left hand since surgery Muscle Tone Muscle Tone WNL Yes M6 PT-IP Treatment Start: 12/09/23 08:06 Freq: NEEDED Status: Active Protocol: Document 12/09/23 09:37 DLM (Rec: 12/09/23 11:53 DLM [id number]) Physical Therapy Treatment Exercises Exercises Ankle Pumps,Shoulder Pendulums ,Elbow Flexion/Extension,Wrist ROM,Hand ROM Education Education Provided Precautions,Weight Bearing Status,Safety Other Treatments Other Treatment Performed pendulum done in sitting with just a hang away from body as tolerated, standing was demonstrated but not performed due to her nausea and foggy head M7 PT-IP Assessment and Plan Start: 12/09/23 08:06 Freq: NEEDED Status: Active Protocol: Document 12/09/23 09:37 DLM (Rec: 12/09/23 11:53 DLM [id number]) PT Summary Assessment and Plan Potential Rehabilitation Potential Good Status of Condition at Evaluation Evolving Summary Impairments Pain,ROM,Strength,Balance, Activity Tolerance Progress Towards Goals Safe For Discharge Assessment Summary Viri is alert and resting in bed. She is having post-op issues with nausea. She demonstrates good understanding of her post-op precautions for her left shoulder s/p total shoulder. She is wearing sling left UE which was repositioned this visit for fit/comfort. She demonstrates good functional strength for gait but she is requesting hand held assist when up today due to mild foggy feeling in her head. She has supportive family who can help her at discharge. She appears safe to discharge home when medically stable. Frequency of Treatment Frequency Of Treatment Discharge Treatment Plan Other Recommendations and Next Treatment training completed this visit Focus Precautions Shoulder Precautions Sling,Internal Rotation to Body,No External Rotation Weight Bearing Status Weight Bearing Status Non-Weight Bearing Allowed Weight Bearing Amount (enter % left UE, wear sling 6 weeks or #) (%) Recommendations To Nursing Amount of Assist Needed 1 Person Assist Discharge Recommendations PT Discharge Recommendations Home with Assistance Other Discharge Recommendations Her Spouse and Daughter will be able to assist her. She will stay in [facility] and [place] Transportation Needs at Discharge Private Vehicle
--- NOTE | 2023-12-09 10:38 | CM.DANOTE ---
Initial DCP Assessment Note Pt is a 83 yo female, resident of [place], now POD#1 from left shoulder arthroplasty by Dr Mcknight PCP: Gabbi Urban Payer: MARISOL Reviewed chart, pt discussed in multidisciplinary rounds this morning. Therapy has cleared pt for return home w/family to assist and pt has planned for home, DC order from Ortho has already been initiated this morning. Patient fractured her shoulder in September and family has been assisting w/ADLs since that time; plan to continue same level of assist post operatively. No barriers identified at this time to patient's safe discharge home w/family to assist; close outpatient f/u recommended. CM team will plan to follow closely in case any DC needs or concerns arise. QUE Menendez Discharge Planning/Care Management Discharge Assessment Start: 12/09/23 10:31 Freq: Status: Active Protocol: Document 12/09/23 10:31 ELOISA (Rec: 12/09/23 10:38 ELOISA [id number]) Discharge Planning Assessment Assigned Sap Portal Architect QUE Sampson DPOA/Assigned Designee Name Markie Bush, spouse Contact Information [phone] Advance Directives? Yes Advance Directives on File No History Provided By Patient,Medical Record Prior Living Arrangements House Household Members spouse Type of transporation used prior to Drives own vehicle admit Independent with ADL's Yes: Patient fractured her shoulder months ago, family has been helping Is patient alert and oriented? Yes Needs Assistance With Meal Prep,Home Chores / Shopping Patient/Family Preference OP PT Therapy Barriers to Discharge No Comment Home w/family expected Discharge Plan Home Transportation Arrangement Family Referrals Initiated None needed
--- NOTE | 2023-12-09 11:18 | P.DS_ITS ---
History of Present Illness History of Present Illness Chief complaint: Left Total Shoulder Arthroplasty - Reverse Narrative: Viri is a pleasant 83-year-old female who is pod #1 s/p left reverse total shoulder for a left proximal humerus fracture. She reports overall she is doing well. Pain has been mild and well controlled with Tylenol and Ibuprofen alone today. She lives at home with her who is willing and able to aid patient in her immediate postop recovery. She feels that he can take care of her if she were to d/c to home today but has concerns about ferry times and getting onto a ferry today. Has post-op PT appts set up with [facility] already. Denies fever, chills, chest pain, shortness of breath, or vomiting. Does endorse nausea which she has been getting Zofran for. Operative Date/Time/Diagnoses Date of procedure: 12/08/23 Time of procedure: 18:19 Pre-op diagnosis: Left proximal humerus fracture Post-op diagnosis: same Procedure & Clinicians Procedure: Left shoulder reverse for fracture Same procedure as scheduled: Yes Indications: Indications: This is a 83-year-old female who has left proximal humerus fracture. After extensive discussion in clinic, they wished to go forward with surgery. Risks and benefits were described including the risk of infection, bleeding, damage to internal structures including nerves as well as instability. We also discussed the risk of failure of surgery and the need for revision surgery as well as the risk of anesthesia. The patient expressed understanding with these risks and wished to go forward with surgery. Surgeon: Harlan Mcknight Technical Developer: Lena Sethi Anesthesia Type: General Discharge Providers Provider Discharge Date: 12/09/23 Primary care physician: Gabbi Urban MD Consults: 12/01/23 14:38 Consult to Anesthesiology Routine Comment: Consulting Provider: Anesthesiologist Reason for consultation: PAC courtesy re: low sodium level on pre-op labs 12/08/23 17:44 Consult to Discharge Planning Routine Comment: Consult to Physical Therapy Evaluate & Treat Comment: Physician Instructions: Evaluate and Treat Discharge provider: Lena Sethi PA-C Summary Hospital Course Discharge Diagnosis: stable s/p left reverse total shoulder arthroplasty Hospital Course: Uncomplicated hospital course Exam Vital Signs (past 8 hours): - 12/09/23 06:00 12/09/23 08:19 Temperature 98.2 F Pulse Rate 69 73 Respiratory Rate 16 Blood Pressure 119/63 121/58 L Pulse Oximetry 96 Oxygen Flow Rate 0 Oxygen Delivery Method Room Air Oxygen Flow Rate 0 Narrative Exam Narrative: Patient is sitting comfortably in bedside chair during interview today wearing her sling on the left shoulder. Resp Effort & Inspection: normal respiratory effort and able to speak in complete sentences Cardio Rate: regular rate Other: Brisk capillary refill. Skin Other: Dressing clean, dry and intact without drainage. Neuro General: patient alert, patient awake and patient oriented x3 Other: Gross sensation intact throughout the right upper extremity with the exception of the tip of the left thumb. Extrem Other: Grossly normal alignment with moderate swelling extending from the left shoulder down into the left hand and fingers. Intact finger to thumb opposition. Full AROM of wrist and fingers. 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 Psych Appearance: grossly normal Mental Status: mental status grossly normal Speech and Movement: speech and movement normal Objective Labs 12/09/23 05:35 12/08/23 Unknown Labs: Laboratory Results - last 24 hr 12/08/23 12/09/23 Unknown 05:35 WBC 6.8 RBC 3.43 L Hgb 11.0 L Hct 31.3 L MCV 91.5 MCH 32.1 MCHC 35.0 RDW 12.4 Plt Count 201 Sodium 129 L Potassium 4.1 Chloride 96 L Carbon Dioxide 28 BUN 11 Creatinine 0.44 L Estimated GFR > 60 BUN/Creatinine Ratio 25.0 H Glucose 101 Calcium 9.9 PFSH Medical History (Updated 12/01/23 @ 13:39 by Harriet Stewart RN) Cardiac murmur Sinus drainage Pneumonia (~2018) Anxiety and depression Arthritis Fracture of neck of left humerus Scoliosis Hypothyroidism History of chest pain (~2020) HLD (hyperlipidemia) HTN (hypertension) Surgical History (Updated 12/01/23 @ 13:17 by Harriet Stewart, RN) History of orthopedic surgery Hx of bilateral cataract extraction Status post tubal ligation Status post dilation and curettage Family History Father Prostate cancer Hypertension Grandmother Heart disease Hypertension Mother Hypertension Stroke Social History household members: spouse Smoking Status: Never smoker alcohol intake: current Discharge Assessment & Plan Assessment and Plan Assessment: Stable s/p left reverse TSA for a left proximal humerus fracture. Plan of Treatment: Okay to discharge today pending schedule. 1) Continue multimodal pain management. Medications sent to retail pharmacy today. Ice to the shoulder for additional pain control. 2) Keep sling on for 6 weeks, strict no external rotation for 6 weeks. Work on appropriate range of motion with outpatient physical therapy. 3) Keep dressing clean and dry until 2 week postop appointment. No soaking the incision site in pools or tubs, no topical ointments or creams to the incision site. 4) Follow up as scheduled at [facility] in 2 weeks for a postop appointment. Discharge Plan Discharge Plan Patient Disposition: Home Nursing Discharge Comment: Incentive Spirometer (breathing excercises), walk and ice every 2 hours while awake. Discharge orders & Medications Discharge Orders: Discharge (Order); Ordered 12/09/23 Ordered By: Lena Sethi Prescriptions: New ondansetron 4 mg Tablet,Disintegrating 4 mg PO Q4HR PRN (Reason: Nausea And Vomiting) Qty: 20 0RF acetaminophen 325 mg Tablet 650 mg PO Q6H Qty: 120 1RF aspirin 81 mg Tablet,Delayed Release (Dr/Ec) 81 mg PO BID Qty: 120 0RF docusate sodium 100 mg Capsule 100 mg PO BID PRN (Reason: constipation) Qty: 30 0RF ibuprofen 600 mg Tablet 600 mg PO Q6H Qty: 90 1RF oxycodone 5 mg tablet 5 mg PO Q4-6H PRN (Reason: pain) Qty: 15 0RF Continued cholecalciferol (vitamin D3) [Vitamin D3] 2,000 UNIT capsule 5,000 iu PO QDAY Qty: 0 levothyroxine [Synthroid] 75 MCG tablet 0.075 mg PO QAM Qty: 90 1RF multivitamin [Multiple Vitamins] 1 EACH tablet 1 tab PO QDAY Qty: 0 vitamin B complex [B Complex-Vitamin B12] 1 EACH tablet 1 tab PO QDAY Qty: 0 amlodipine 10 mg Tablet 10 mg PO BEDTIME losartan 100 mg Tablet 100 mg PO BEDTIME rosuvastatin 5 mg Tablet 5 mg PO BEDTIME Medication counseling provided by Pharmacist: Yes Follow up/Referrals: Gabbi Urban MD [Primary Care Provider] - Harlan Mcknight MD [Physician] - (Follow up as scheduled with [facility] in 2 weeks for post-op appointment. 12/20/23) Diet/Activity/Treatments Diet: Diet as Tolerated Activity: Sling to remain on for 6 weeks. No external rotation past neutral for 6 weeks. Start outpatient PT and work on appropriate range of motion. Cold/Heat Therapy: Ice to the shoulder for pain control. Skin/Wound/Dressing Care Report to your healthcare provider any signs of infection, such as:: chills, fever, night sweats, unusual drainage and unusual redness Dressing: Keep dressing intact until 2 week postop appointment. Keep dressing clean and dry, no soaking the incision site in pools or tubs however okay to shower over the dressing. No topical ointments or creams to the incision site. If dressing becomes saturated or dirty call our office for a replacement dressing. If any water gets underneath the dressing, remove the dressing and replace with clean and dry gauze. Visit Report/Discharge Packet Instructions: How to Use an Incentive Spirometer, How to Use a Sling, DI for Constipation, How to Prevent Falls, DI for Prescription Opioid Use, DI for Shoulder Replacement Stand Alone Forms: Patient Portal/API Discharge Data Primary Care Provider: Gabbi Urban Attending Provider: Harlan Mcknight VTE Deep Vein Thrombosis/Pulmonary Embolism Present on Admission: No
[2023-12-09 12:16] VITALS: BP 120/60; PULSE 69
[2023-12-09 15:34] LABS: Appearance Urine UA CLEAR; Bilirubin Urine UA NEGATIVE (NEGATIVE); Color Urine UA YELLOW; Glucose Urine UA NEGATIVE (Negative); Ketones Urine UA TRACE (NEGATIVE); Leukocyte Esterase Urine UA NEGATIVE (NEGATIVE); Nitrite Urine UA NEGATIVE (Negative); Occult Blood Urine UA NEGATIVE (Negative); Protein Urine UA NEGATIVE (Negative); Urobilinogen Urine UA 0.2 E.U./dL (0.2)
[2023-12-09 15:40] LABS: Bacteria Urine Occasional (0-1); Culture Indicated Urine Cult Not Indicated; RBC Urine 0-1/HPF (0-5/HPF); Squamous Epithelial Cell Urine 0-1 /HPF (0-5/HPF); Urine Volume 10mL (spun); WBC Urine 0-1/HPF (0-5/HPF)
--- NOTE | 2023-12-09 18:30 | PC.NURSE ---
Discharge: Pt seen by PT and d/c-safe to go home. Seen by PA and given d/c instructions. Vds w/out diff. Tolerates diet w/out problems. Had some nausea with meds and she thinks it is the ibuprofen, a dose was not given and she is feeling better. Can stick with plain tylenol. D/c instructions reviewed and understood. Questions answered. There were some issues with obtaining the priority load for the ferry and the clinic sent in the priority loading pass. Pt d/c to home via auto w/family.
== END 2023-12-09 16:45 | disposition home or self-care (01) ==
LOC: OR 13:41 → AC 14:20
PROVIDERS: Student in an Organized Health Care Education/Training Program; PCP Family Medicine; Referring Provider Orthopaedic Surgery; Visit Provider Orthopaedic Surgery
PROC: (CPT 23472; principal; 2023-12-08 13:45)
DX: S42.212A Unspecified displaced fracture of surgical neck of left humerus, initial encounter for closed fracture (principal); M25.712 Osteophyte, left shoulder
CPT/HCPCS: 23472; 36415; 73020; 80048; 81001; 85027; 97162; C1776; C9290; J0171; J0690; J1170; J1885; J2405; J2704; J3010